=== PATIENT | female | born 1985 | race Caucasian/White ===

== ENCOUNTER 2016-08-02 11:22 | Emergency (ER) | payer MEDICAID ==
[2016-08-02 11:37] VITALS: BP 115/83
[2016-08-02] MEDS ORDERED: MOTRIN ONE (13:17)
[2016-08-02] MEDS ORDERED: MOTRIN PO ONE (13:19)
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
== END 2016-08-02 13:54 | disposition other institution (70) ==
LOC: ED 11:22
DX: T74.21XA Adult sexual abuse, confirmed, initial encounter (principal); G89.29 Other chronic pain; F17.200 Nicotine dependence, unspecified, uncomplicated
CPT/HCPCS: 99282

== ENCOUNTER 2018-07-29 22:28 | Emergency (ER) | payer BC, MEDICAID, OTHER ==
[2018-07-29 22:43] VITALS: BP 116/83
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
[2018-07-30] MEDS ORDERED: FLEXERIL PO ONE (02:08)
[2018-07-30] MEDS ORDERED: DECADRON IM ONE (02:08)
[2018-07-30] MEDS ORDERED: TORADOL IM ONE (02:08)
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
== END 2018-07-30 04:12 | disposition home or self-care (01) ==
LOC: ED 22:28
DX: S16.1XXA Strain of muscle, fascia and tendon at neck level, initial encounter (principal); X58.XXXA Exposure to other specified factors, initial encounter; Y93.89 Activity, other specified; Y92.89 Other specified places as the place of occurrence of the external cause; Y99.8 Other external cause status
CPT/HCPCS: 99282

== ENCOUNTER 2019-01-03 17:54 | Emergency (ER) | payer OTHER ==
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
[2019-01-03] MEDS ORDERED: IBUPROFEN 400 MG TAB PO ONE (21:36)
[2019-01-03] MEDS ORDERED: CYCLOBENZAPRINE 10 MG TAB PO ONE (21:36)
[2019-01-03 22:05] VITALS: BP 105/69
== END 2019-01-03 22:10 | disposition home or self-care (01) ==
LOC: ED 17:54
DX: M54.2 Cervicalgia (principal); M54.6 Pain in thoracic spine; F41.9 Anxiety disorder, unspecified; Z79.899 Other long term (current) drug therapy; V49.49XA Driver injured in collision with other motor vehicles in traffic accident, initial encounter; Y93.89 Activity, other specified; Y92.410 Unspecified street and highway as the place of occurrence of the external cause; Y99.8 Other external cause status
CPT/HCPCS: 72040; 72070

== ENCOUNTER 2019-02-03 19:37 | Emergency (ER) | payer MEDICAID, OTHER ==
[2019-02-03 19:56] VITALS: BP 119/78
--- NOTE | 2019-02-03 20:03 | Event Note ---
ED Screening Note ED Screening Note: states she had a bump on her left lateral forehead that began two days ago denies any scratching states she has had small amount of drainage no fever PMHx anxiety
--- NOTE | 2019-02-03 20:07 | Emergency Department Report ---
- General Chief complaint: Skin/Abscess/Foreign Body Stated complaint: HEAD/CHEST PAIN/ELEVATED HEART RATE Time Seen by Provider: 02/03/19 19:59 Source: patient Mode of arrival: Ambulatory Limitations: No Limitations - History of Present Illness Initial comments: Patient is a 33-year-old female presents emergency room with complaints of a bump on her left lateral forehead that began two days ago. she denies any scratching. she denies being hit in the head. she denies getting bit by anything. states she has had small amount of drainage. no fever. no chills, no vomiting. PMHx anxiety - Related Data Previous Rx's Medication Instructions Recorded Last Taken Type Cyclobenzaprine [Flexeril 10mg] 10 mg PO Q8H PRN #15 tablet 06/14/14 Unknown Rx HYDROcodone/APAP 5-325 [[place] 1 each PO Q6HR PRN #12 tablet 06/14/14 Unknown Rx 5/325] ALPRAZolam [ALPRAZolam Intensol] 1 mg PO QHS PRN #12 ml 12/15/14 Unknown Rx traMADoL [Ultram 50 MG tab] 50 mg PO Q6HR PRN #12 tablet 07/30/18 Unknown Rx Ibuprofen [Motrin 600 MG tab] 600 mg PO Q8H PRN #15 tablet 09/25/18 Unknown Rx Cyclobenzaprine HCl [Flexeril 5 MG 5 mg PO TID PRN #12 tab 01/03/19 Unknown Rx TAB] Ibuprofen [Motrin 400 MG tab] 400 mg PO Q8H PRN #20 tablet 01/03/19 Unknown Rx Sulfamethoxazole/Trimethoprim 1 each PO BID 7 Days #14 tablet 02/03/19 Unknown Rx [Bactrim DS TAB] Allergies Allergy/AdvReac Type Severity Reaction Status Date / Time No Known Allergies Allergy Verified 09/25/18 14:54 Abscess Boil HPI - HPI Chief Complaint: Skin/Abscess/Foreign Body Stated Complaint: HEAD/CHEST PAIN/ELEVATED HEART RATE Time Seen by Provider: 02/03/19 19:59 Home Medications: Previous Rx's Medication Instructions Recorded Last Taken Type Cyclobenzaprine [Flexeril 10mg] 10 mg PO Q8H PRN #15 tablet 06/14/14 Unknown Rx HYDROcodone/APAP 5-325 [[place]ley 1 each PO Q6HR PRN #12 tablet 06/14/14 Unknown Rx 5/325] ALPRAZolam [ALPRAZolam Intensol] 1 mg PO QHS PRN #12 ml 12/15/14 Unknown Rx traMADoL [Ultram 50 MG tab] 50 mg PO Q6HR PRN #12 tablet 07/30/18 Unknown Rx Ibuprofen [Motrin 600 MG tab] 600 mg PO Q8H PRN #15 tablet 09/25/18 Unknown Rx Cyclobenzaprine HCl [Flexeril 5 MG 5 mg PO TID PRN #12 tab 01/03/19 Unknown Rx TAB] Ibuprofen [Motrin 400 MG tab] 400 mg PO Q8H PRN #20 tablet 01/03/19 Unknown Rx Sulfamethoxazole/Trimethoprim 1 each PO BID 7 Days #14 tablet 02/03/19 Unknown Rx [Bactrim DS TAB] Allergies/Adverse Reactions: Allergies Allergy/AdvReac Type Severity Reaction Status Date / Time No Known Allergies Allergy Verified 09/25/18 14:54 ED Review of Systems ROS: Stated complaint: HEAD/CHEST PAIN/ELEVATED HEART RATE Other details as noted in HPI Comment: All other systems reviewed and negative ED Past Medical Hx - Past Medical History Hx Hypertension: No Hx CVA: No Hx Heart Attack/AMI: No Hx Congestive Heart Failure: No Hx Diabetes: No Hx Deep Vein Thrombosis: No Hx Pulmonary Embolism: No Hx GERD: No Hx Liver Disease: No Hx Renal Disease: No Hx Sickle Cell Disease: No Hx Arthritis: No Hx Headaches / Migraines: No Hx Seizures: No Hx Kidney Stones: No Hx Psychiatric Treatment: Yes (anxiety D/O, STRESS DISORDER) Hx Asthma: No Hx COPD: No Hx Tuberculosis: No Hx Dementia: No Hx HIV: No Additional medical history: chronic back pain - Surgical History Hx Coronary Stent: No Hx Open Heart Surgery: No Hx Pacemaker: No Hx Internal Defibrillator: No Hx Cholecystectomy: No Hx Appendectomy: No Hx Breast Surgery: No Additional Surgical History: 2X - Social History Smoking Status: Never Smoker Substance Use Type: None - Medications Home Medications: Home Medications Medication Instructions Recorded Confirmed Last Taken Type Cyclobenzaprine [Flexeril 10mg] 10 mg PO Q8H PRN #15 tablet 06/14/14 Unknown Rx HYDROcodone/APAP 5-325 [[place] 1 each PO Q6HR PRN #12 tablet 06/14/14 Unknown Rx 5/325] ALPRAZolam [ALPRAZolam Intensol] 1 mg PO QHS PRN #12 ml 12/15/14 Unknown Rx traMADoL [Ultram 50 MG tab] 50 mg PO Q6HR PRN #12 tablet 07/30/18 Unknown Rx Ibuprofen [Motrin 600 MG tab] 600 mg PO Q8H PRN #15 tablet 09/25/18 Unknown Rx Cyclobenzaprine HCl [Flexeril 5 MG 5 mg PO TID PRN #12 tab 01/03/19 Unknown Rx TAB] Ibuprofen [Motrin 400 MG tab] 400 mg PO Q8H PRN #20 tablet 01/03/19 Unknown Rx Sulfamethoxazole/Trimethoprim 1 each PO BID 7 Days #14 tablet 02/03/19 Unknown Rx [Bactrim DS TAB] ED Physical Exam - General Limitations: No Limitations General appearance: alert, in no apparent distress - Head Head exam: Present: other (2 cm area of induration to the left lateral forehead, mild scabbing and dried drainage present, no fluctuance, no active drainage, no drainage on manual expression ) - Eye Eye exam: Present: normal appearance - Neurological Exam Neurological exam: Present: alert, oriented X3 - Psychiatric Psychiatric exam: Present: normal affect, normal mood - Skin Skin exam: Present: warm, dry, intact ED Course Vital Signs 02/03/19 02/03/19 19:42 20:05 Temperature 97.6 F Pulse Rate 113 H 97 H Respiratory 18 Rate Blood Pressure 119/78 O2 Sat by Pulse 99 Oximetry ED Medical Decision Making - Medical Decision Making Patient is a 33-year-old female presents emergency room with complaints of a bump on her left lateral forehead that began two days ago. she denies any scratching. she denies being hit in the head. she denies getting bit by anything. states she has had small amount of drainage. no fever. no chills, no vomiting. PMHx anxiety. Initial vitals with mildly elevated heart rate which improved to normal upon repeat. on exam: 2 cm area of induration to the left lateral forehead, mild scabbing and dried drainage present, no fluctuance, no active drainage, no drainage on manual expression. Appears to be cellulitis at this time. No drainable abscess at this time. Patient given prescription for Bactrim. Advised patient that she would need to be reevaluated by primary care doctor in the next 3 days. Discussed with patient that if antibiotics did not resolve the cellulitis she could possibly need an incision and drainage procedure in the future. advised pt to please take medication as prescribed. may take ibuprofen or tylenol for discomfort. follow up with a primary care doctor in the next 2-3 days for reexamination of the area. return to the emergency room for any new or worsening symptoms or worsening signs of infection. - Differential Diagnosis abscess, cellulitis, insect bite Critical care attestation.: If time is entered above; I have spent that time in minutes in the direct care of this critically ill patient, excluding procedure time. ED Disposition Clinical Impression: Cellulitis Qualifiers: Site of cellulitis: head Qualified Code(s): L03.811 - Cellulitis of head [any part, except face] Disposition: - TO HOME OR SELFCARE Is pt being admited?: No Does the pt Need Aspirin: No Condition: Stable Instructions: Cellulitis (ED) Additional Instructions: please take medication as prescribed. may take ibuprofen or tylenol for discomfort. follow up with a primary care doctor in the next 2-3 days for reexamination of the area. return to the emergency room for any new or worsening symptoms or worsening signs of infection. Prescriptions: Sulfamethoxazole/Trimethoprim [Bactrim DS TAB] 1 each PO BID 7 Days #14 tablet Referrals: your, primary care doctor [Other] - 2-3 Days Time of Disposition: 20:05 Print Language: BELARUSIAN
== END 2019-02-03 21:20 | disposition home or self-care (01) ==
LOC: ED 19:37
DX: L03.811 Cellulitis of head [any part, except face] (principal); G89.29 Other chronic pain; Z79.899 Other long term (current) drug therapy
CPT/HCPCS: 99282